=== PATIENT | male | born 1965 | race African-American/Black ===

== ENCOUNTER 2018-07-07 10:37 | Emergency (ER) | payer BC ==
[2018-07-07] MEDS ORDERED: IBUPROFEN 200 MG TAB PO ONE (11:29)
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
--- NOTE | 2018-07-07 13:01 | RAD REPORT ---
EXAM DESCRIPTION: RAD - Shoulder Right 2 View - 07/07/2018 11:55 am CLINICAL HISTORY: Right shoulder pain status post fall FINDINGS: No fracture or dislocation is seen.
[2018-07-07 13:07] VITALS: BP 115/60; TEMP 98.3; O2SAT 98
== END 2018-07-07 13:03 | disposition home or self-care (01) ==
LOC: ER 10:37
DX: S40.011A Contusion of right shoulder, initial encounter (principal); V18.0XXA Pedal cycle driver injured in noncollision transport accident in nontraffic accident, initial encounter; Y93.89 Activity, other specified; Y92.89 Other specified places as the place of occurrence of the external cause
CPT/HCPCS: 99283

== ENCOUNTER 2022-04-16 22:09 | Emergency (ER) | payer BC ==
[2022-04-16] MEDS ORDERED: PANTOPRAZOLE 40MG TABLET PO ONE (23:05)
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
--- NOTE | 2022-04-16 23:57 | EDPHYS ---
Physician Documentation [facility] Name: Jerod Ervin Age: 56 yrs Sex: Male : 1965 Arrival Date: 04/16/2022 Time: 22:09 Bed 8 Private MD: ED Physician Ronaldo Camejo HPI: 04/16 22:21 This 56 yrs old Black Male presents to ER via EMS with complaints of Choked/Choking. snw 22:21 The patient presents with dysphagia, of solids, pt had a neck surgery three years ago, snw needs to eat slowly. Hurriedly ate around 9pm and choked. Got a coke to try to push it down and vomited reliving the s/s. Pt in no distress at this time.. Onset: The symptoms/episode began/occurred suddenly, just prior to arrival. Modifying factors: the symptoms are aggravated by foods, Patient's oral intake status: limited food intake. Associated signs and symptoms: The patient has no apparent associated signs or symptoms, Pertinent positives:. The patient has experienced similar episodes in the past. The patient has not recently seen a physician. Historical: - Allergies: 22:16 No Known Allergies; kd3 - Home Meds: 22:16 None [Active]; kd3 - PMHx: 22:16 None; kd3 - PSHx: 22:16 DISC SURGERY; kd3 - Immunization history:: Adult Immunizations up to date. - Social history:: Smoking status: Patient denies any tobacco usage or history of. ROS: 22:21 Constitutional: Negative for fever, chills, and weight loss, Eyes: Negative for injury, snw pain, redness, and discharge, ENT: Negative for injury, pain, and discharge, Neck: Negative for injury, pain, and swelling, Cardiovascular: Negative for chest pain, palpitations, and edema, Respiratory: Negative for shortness of breath, cough, wheezing, and pleuritic chest pain, Abdomen/GI: Negative for abdominal pain, nausea, vomiting, diarrhea, and constipation, Back: Negative for injury and pain, : Negative for injury, bleeding, discharge, and swelling, MS/Extremity: Negative for injury and deformity, Skin: Negative for injury, rash, and discoloration, Neuro: Negative for headache, weakness, numbness, tingling, and seizure, Psych: Negative for depression, anxiety, suicide ideation, homicidal ideation, and hallucinations. Exam: 22:20 Constitutional: This is a well developed, well nourished patient who is awake, alert, snw and in no acute distress. Head/Face: Normocephalic, atraumatic. Eyes: Pupils equal round and reactive to light, extra-ocular motions intact. Lids and lashes normal. Conjunctiva and sclera are non-icteric and not injected. Cornea within normal limits. Periorbital areas with no swelling, redness, or edema. ENT: Nares patent. No nasal discharge, no septal abnormalities noted. Tympanic membranes are normal and external auditory canals are clear. Oropharynx with no redness, swelling, or masses, exudates, or evidence of obstruction, uvula midline. Mucous membranes moist. Neck: Trachea midline, no thyromegaly or masses palpated, and no cervical lymphadenopathy. Supple, full range of motion without nuchal rigidity, or vertebral point tenderness. No Meningismus. Chest/axilla: Normal chest wall appearance and motion. Nontender with no deformity. No lesions are appreciated. Cardiovascular: Bradycardic rate and rhythm with a normal S1 and S2. No gallops, murmurs, or rubs. Normal PMI, no JVD. No pulse deficits. Respiratory: Lungs have equal breath sounds bilaterally, clear to auscultation and percussion. No rales, rhonchi or wheezes noted. No increased work of breathing, no retractions or nasal flaring. Abdomen/GI: Soft, non-tender, with normal bowel sounds. No distension or tympany. No guarding or rebound. No evidence of tenderness throughout. Back: No spinal tenderness. No costovertebral tenderness. Full range of motion. Skin: Warm, dry with normal turgor. Normal color with no rashes, no lesions, and no evidence of cellulitis. MS/ Extremity: Pulses equal, no cyanosis. Neurovascular intact. Full, normal range of motion. Neuro: Awake and alert, GCS 15, oriented to person, place, time, and situation. Cranial nerves II-XII grossly intact. Motor strength 5/5 in all extremities. Sensory grossly intact. Cerebellar exam normal. Normal gait. Psych: Awake, alert, with orientation to person, place and time. Behavior, mood, and affect are within normal limits. Vital Signs: 22:09 BP 121 / 75; Pulse 50; Resp 17; Temp 97; Pulse Ox 100% ; Weight 86.18 kg; Height 5 ft. vc1 7 in. (170.18 cm); Pain 0/10; 23:35 BP 134 / 79; Pulse 48; Resp 18; Pulse Ox 99% on R/A; kd3 22:09 Body Mass Index 29.76 (86.18 kg, 170.18 cm) vc1 MDM: 22:13 Patient medically screened. snw 22:23 Data reviewed: vital signs, nurses notes. Data interpreted: Pulse oximetry: on room air snw is 100 %. Interpretation: normal. Counseling: I had a detailed discussion with the patient and/or guardian regarding: the historical points, exam findings, and any diagnostic results supporting the discharge/admit diagnosis. 04/16 22:36 Order name: Glucose, Ancillary Testing; Complete Time: 22:39 EDMS 04/16 22:20 Order name: Chest Pa And Lat (2 Views) XRAY snw 04/16 22:20 Order name: FSBS; Complete Time: 22:24 snw 04/16 22:20 Order name: Swallow Screen; Complete Time: 22:24 snw Administered Medications: 23:02 Drug: ProTONIX (pantoprazole) 40 mg Route: PO; as6 04/17 00:05 Follow up: Response: No adverse reaction kd3 Disposition: 04:44 Co-signature as Attending Physician, Ronaldo Camejo DO I was immediately available on-site ms3 in the Emergency Department for consultation in the care of the patient.. Disposition Summary: 04/16/22 23:57 Discharge Ordered Location: Home snw Condition: Stable snw Diagnosis - Choking - resolved snw Followup: snw - With: Emergency Department - When: As needed - Reason: Worsening of condition Followup: snw - With: Private Physician - When: 2 - 3 days - Reason: Recheck today's complaints, Continuance of care, Re-evaluation by your physician Discharge Instructions: - Discharge Summary Sheet snw - Choking, Adult snw Forms: - Medication Reconciliation Form snw - Work release form snw - Thank You Letter snw - Antibiotic Education snw - Prescription Opioid Use snw Signatures: Dispatcher [employer] EDAR Guera Quintanilla FNP-Regino PRABHAKARP-Csnw Ronaldo Camejo DO DO ms3 Shane Colón, JAIME RN as6 Jordana Dubon RN RN kd3 Corrections: (The following items were deleted from the chart) 04/16 22:17 22:16 PSHx: DISC SURGURY; kd3 kd3
[2022-04-17 00:24] VITALS: BP 121/75; TEMP 97; O2SAT 100
--- NOTE | 2022-04-18 12:57 | RAD REPORT ---
EXAM DESCRIPTION: Chest Pa And Lat (2 Views) CLINICAL HISTORY: 56-year-old male status post choking. TECHNIQUE: Two-view, PA and lateral projections of the chest were obtained. COMPARISON: None. FINDINGS: Unremarkable cardiac and mediastinal silhouette. Heart size is normal. Low lung volumes grossly clear without focal opacity, pneumothorax or pleural effusions. The visual ized bones are within normal limits. IMPRESSION: No acute cardiopulmonary abnormalities. Electronically signed by: Garima Smith MD 04/16/2022 11:48 PM CDT Due to temporary technical issues with the PACS/Fluency reporting system, reports are being signed by the in house radiologists without review as a courtesy to insure prompt reporting. The interpreting radiologist is fully responsible for the content of the report.
== END 2022-04-17 00:05 | disposition home or self-care (01) ==
LOC: ER 22:09
DX: T17.920A Food in respiratory tract, part unspecified causing asphyxiation, initial encounter (principal); R13.10 Dysphagia, unspecified
CPT/HCPCS: 71046; 82947; 99283